=== PATIENT | female | born 1975 | race Caucasian/White ===

== ENCOUNTER 2017-03-16 02:01 | Emergency (ER) | payer OTHER ==
[2017-03-16 03:01] LABS: ABSOLUTE EOSINOPHILS # (AUTO) 0.1 10^3/uL (0.0-0.6); ABSOLUTE LYMPHOCYTES (AUTO) 3.2 10^3/uL (0.5-4.7); ABSOLUTE MONOCYTES (AUTO) 0.5 10^3/uL (0.1-1.4); ABSOLUTE NEUT (AUTO) 4.5 10^3/uL (1.7-8.2); BASOPHILS % (AUTO) 0.3 % (0-2); EOSINOPHILS % (AUTO) 1.3 % (0-6); HEMATOCRIT 37.3 % (36.0-47.0); HGB HCT DIFFERENCE 1.7; LYMPHOCYTES % (AUTO) 37.9 % (13-45); MEAN CORPUSCULAR HEMOGLOBIN 32.1 pg (27.0-33.4); MEAN CORPUSCULAR VOLUME 92 fl (80-97); MONOCYTES % (AUTO) 6.2 % (3-13); RED BLOOD COUNT 4.06 10^6/uL (3.72-5.28); RED CELL DISTRIBUTION WIDTH 12.4 % (11.5-14.0); SEGMENTED NEUTROPHILS % (AUTO) 54.3 % (42-78); WHITE BLOOD COUNT 8.3 10^3/uL (4.0-10.5)
[2017-03-16 03:13] LABS: ALANINE AMINOTRANSFERASE 50 U/L (9-52); ALBUMIN 4.7 g/dL (3.5-5.0); ALCOHOL 141 mg/dL (NONE DETECTED); ALKALINE PHOSPHATASE 52 U/L (38-126); ANION GAP 16 (5-19); ASPARTATE AMINO TRANSFERASE 32 U/L (14-36); BILIRUBIN,DIRECT 0.2 mg/dL (0.0-0.4); BILIRUBIN,TOTAL 0.2 mg/dL (0.2-1.3); BLOOD UREA NITROGEN 14 mg/dL (7-20); CALCIUM 9.5 mg/dL (8.4-10.2); CARBON DIOXIDE 19 mmol/L (22-30); CHLORIDE 110 mmol/L (98-107); GLUCOSE 83 mg/dL (75-110); POTASSIUM 4.2 mmol/L (3.6-5.0); SODIUM 144.6 mmol/L (137-145); TOTAL PROTEIN 7.5 g/dL (6.3-8.2)
--- NOTE | 2017-03-16 03:20 | ER Document Report ---
ED General - General Chief Complaint: Possible Overdose Stated Complaint: POSSIBLE OVERDOSE Time Seen by Provider: 03/16/17 02:28 Notes: Patient is a 41-year-old female presents with complaint of overdose. Patient says that she overdosed on handful of metoprolol pills. She says it is the long -acting metoprolol to take once a day. She is unsure of the dose. She says these are not her medications. She said she did it because "I just wanted to go to sleep". She has no other complaints at this time. She currently denies being suicidal. TRAVEL OUTSIDE OF THE [place] IN LAST 30 DAYS: No Past Medical History - Social History Smoking Status: Current Every Day Smoker Chew tobacco use (# tins/day): No Frequency of alcohol use: Social Drug Abuse: None Family History: Reviewed & Not Pertinent Patient has suicidal ideation: No Patient has homicidal ideation: No Renal/ Medical History: Denies: Hx Peritoneal Dialysis Review of Systems - Review of Systems Notes: My Normal Review Basic REVIEW OF SYSTEMS: CONSTITUTIONAL : Denies fever, chills, or sweats. Denies recent illness. EENT: Denies eye, ear, throat, or mouth pain or symptoms. Denies nasal or sinus congestion. CARDIOVASCULAR: Denies chest pain. RESPIRATORY: Denies cough, cold, or chest congestion. Denies shortness of breath, difficulty breathing, or wheezing. GASTROINTESTINAL: Denies abdominal pain. Denies nausea, vomiting, or diarrhea. Denies constipation. Last BM: MUSCULOSKELETAL: Denies neck or back pain or joint pain or swelling. SKIN: Denies rash or skin lesions. NEUROLOGICAL: Denies altered mental status or loss of consciousness. Denies headache. Denies weakness or paralysis or loss of use of either side. Denies problems with gait or speech. Denies sensory or motor loss. PSYCHIATRIC: Metastases to some depression and anxiety but denies suicidal ideations. ALL OTHER SYSTEMS REVIEWED AND NEGATIVE. Physical Exam - Vital signs Vitals: Temp Pulse Resp BP Pulse Ox 98.3 F 79 14 115/64 99 03/16/17 02:06 03/16/17 02:06 03/16/17 02:06 03/16/17 02:06 03/16/17 02:06 - Notes Notes: General Appearance: Well nourished, alert, cooperative, no acute distress, no obvious discomfort. Well-appearing. Vitals: reviewed, See vital signs table. Head: no swelling or tenderness to the head Eyes: PERRL, EOMI, Conjuctiva clear Mouth: No decreasd moisture Lungs: No wheezing, No rales, No rhonci, No accessory muscle use, good air exchange bilaterally. Heart: Normal rate, Regular rythm, No murmur, no rub Abdomen: Normal BS, soft, No rigidity, No abdominal tenderness, No guarding, no rebound, no abdominal masses, no organomegaly Extremities: strength 5/5 in all extremities, good pulses in all extremities, no swelling or tenderness in the extremities, no edema. Skin: warm, dry, appropriate color, no rash Neuro: speech clear, oriented x 3, normal affect, responds appropriately to questions. Course - Re-evaluation Re-evalutation: 03/16/17 05:40 Patient's vital signs have remained completely normal. I did speak with [employer] control and they said that if she has no symptoms after 12 hours and she can be medically cleared. She took medications around midnight. If she continues to not have bradycardia or hypotension at noon than she will be medically cleared for psychiatric evaluation. Patient tells me that she is once his sleep however she also goes on about her severe depression and anxiety which caused him to be some concerned that there may be some other intent with this overdose other than just trying to sleep. I placed an IVC paperwork so that psychiatry will have an opportunity to evaluate her. Dictation of this chart was performed using voice recognition software; therefore, there may be some unintended grammatical errors. - Vital Signs Vital signs: Temp Pulse Resp BP Pulse Ox 98.3 F 79 15 104/72 99 03/16/17 02:06 03/16/17 02:06 03/16/17 10:30 03/16/17 10:01 03/16/17 10:30 - Laboratory Result Diagrams: 03/16/17 02:32 03/16/17 02:32 Laboratory results interpreted by me: 03/16/17 02:32 Chloride 110 H Carbon Dioxide 19 L Salicylates < 1.0 L Acetaminophen < 10 L - EKG Interpretation by Me Additional EKG results interpreted by me: 03/16/17 03:17 EKG is reviewed and interpreted by me. EKG shows normal sinus rhythm with rate of [address] segment elevation or depression. No ischemic T-wave inversions. [place] interval, QRS duration, QTc intervals are within normal range. No old EKG available for comparison. Discharge - Discharge Clinical Impression: Depressive disorder, Anxiety Condition: Stable Disposition: HOME, SELF-CARE Additional Instructions: DEPRESSION: Your evaluation reveals that you have mental depression. While symptoms may be vague, they often include disturbance of sleep, fatigue, loss of appetite , and general loss of interest in life. While depression may be a side effect of drugs, or a reaction to a major change in your life, many cases have no known cause. If depression is acute, and related to a major loss in your life, you can expect it to clear completely with time. If you have been depressed a long time , are prone to repeated bouts of depression or low mood, or have been thinking of suicide, get help. Depression can be treated with anti-depressant medication and counselling. Long-term depression will often take a few weeks to clear, even with appropriate medication. Follow-up care is important. FOLLOW-UP CARE: Please [place] health needs. Is recommended to take only medications that are prescribed to you as directed. ~ If you experience worsening or a significant change in your symptoms, notify the physician immediately or return to the Emergency Department at any time for re-evaluation.
--- NOTE | 2017-03-16 03:57 | EKG REPORT ---
SEVERITY:- BORDERLINE ECG - SINUS RHYTHM PROBABLE LEFT ATRIAL ABNORMALITY : Confirmed by: Jennifer Martinez MD 16-Mar-2017 03:56:23
--- NOTE | 2017-03-16 10:07 | ER Document Report ---
ED Psych Disorder / Suicide - General Chief Complaint: Possible Overdose Stated Complaint: POSSIBLE OVERDOSE Time Seen by Provider: 03/16/17 02:28 TRAVEL OUTSIDE OF THE [place] IN LAST 30 DAYS: No - HPI Notes: Patient reports intentionally taking a handful of her husbands meds (50mg ER metoprolol) Pt denies SI but reports "I just wanted to go to sleep! IT's been 3 days since I've slept" Pt reports being under a lot of stress recently and unable to sleep. Pt denies AH denies VH denies and deneis HI or SI. Pt has hx of depression and anxiety. Patient disclosed that she just wanted to sleep the took her 's medication. Patient denies ever doing anything like this before. Patient disclosed that she has been up for 3 days because "school and everything... Just have not been able to get to sleep." Patient states she only took that medication because she remembered her saying that it always made him sleepy. Patient denies any mental health outpatient services. Patient does receive Effexor 75 mg from her primary care provider on [facility]. Patient's disclosed he is willing to be part of discharge plan i.e. no access to medications or weapons and follow through with mental health recommendations. Both patient and patient's feels safe with the patient coming home. Patient is seen with the blue team for family care at the [facility]. They disclosed they will be ensuring the patient receives anti- anxiety medications which she was previously on before. Patient recently ran out which is when the the patient started having difficulties. Patient is alert and orientated to person place time and circumstance. Mood is euthymic with congruent affect. Patient denies suicidal homicidal ideation. Patient denies auditory visual hallucinations. Delusions were absent and behaviors congruent with intact reality based presentation i.e. organized, linear, rational thinking. Conversational speech was within normal rate tone and prosody. Eye contact was well-maintained. Intellectual abilities appear to be within the average range. Attention and concentration were good. Insight , judgment, impulse control is fair. 311 (F32.9) unspecified depressive disorder per history provided by patient 300.00 (F34.9) unspecified anxiety disorder per history provided by patient Impression\\plan: Patient is recommended for rescind of IVC and is considered psychiatrically clear for discharge. Patient no longer meets IVC criteria per [place] GS 122C. Patient disclosed she took her 's medications in attempt to go to sleep because she was having difficulties for the last 3 days sleeping. Patient states that she remembered her stating that this medication made him sleepy. Patient adamantly denies that this was a suicide attempt. Patient's agrees to be part of discharge plan to ensure patient does not have access to weapons or medications and follows up with all recommendations for mental health. Patient recently ran out of her antianxiety medications which patient and report is when patient had started having difficulties. Delusions were absent behaviors congruent with intact reality based presentation i.e. organized, linear, rational thinking. Patient is [place]. Patient is also recommended to take prescription medications as prescribed and only take medications that are prescribed to her. Dr. Kennedy was consulted on the care and management of this patient; attending physician is in agreement with recommendations and disposition. Past Medical History - Social History Smoking Status: Current Every Day Smoker Chew tobacco use (# tins/day): No Frequency of alcohol use: Social Drug Abuse: None Family History: Reviewed & Not Pertinent Patient has suicidal ideation: No Patient has homicidal ideation: No Renal/ Medical History: Denies: Hx Peritoneal Dialysis Physical Exam - Vital signs Vitals: Temp Pulse Resp BP Pulse Ox 98.3 F 79 14 115/64 99 03/16/17 02:06 03/16/17 02:06 03/16/17 02:06 03/16/17 02:06 03/16/17 02:06 Course - Vital Signs Vital signs: Temp Pulse Resp BP Pulse Ox 98.3 F 79 16 101/78 98 03/16/17 02:06 03/16/17 02:06 03/16/17 08:30 03/16/17 08:01 03/16/17 08:30 - Laboratory Result Diagrams: 03/16/17 02:32 03/16/17 02:32 Laboratory results interpreted by me: 03/16/17 02:32 Chloride 110 H Carbon Dioxide 19 L Salicylates < 1.0 L Acetaminophen < 10 L Discharge - Discharge Clinical Impression: Depressive disorder, Anxiety Condition: Stable Disposition: HOME, SELF-CARE Additional Instructions: DEPRESSION: Your evaluation reveals that you have mental depression. While symptoms may be vague, they often include disturbance of sleep, fatigue, loss of appetite , and general loss of interest in life. While depression may be a side effect of drugs, or a reaction to a major change in your life, many cases have no known cause. If depression is acute, and related to a major loss in your life, you can expect it to clear completely with time. If you have been depressed a long time , are prone to repeated bouts of depression or low mood, or have been thinking of suicide, get help. Depression can be treated with anti-depressant medication and counselling. Long-term depression will often take a few weeks to clear, even with appropriate medication. Follow-up care is important. FOLLOW-UP CARE: Please [place] health needs. Is recommended to take only medications that are prescribed to you as directed. ~ If you experience worsening or a significant change in your symptoms, notify the physician immediately or return to the Emergency Department at any time for re-evaluation.
--- NOTE | 2017-03-16 10:10 | ER Document Report ---
Doctor's Note Notes: 03/16/17 10:08 Patient resting comfortably on stretcher, is at bedside, she denies being suicidal or making a suicide attempt, stating that she was just trying to go to sleep because she was tired, she does admit to a history of anxiety in the past, apparently stopped taking her medication for approximately a week as they were out of town, confirms that she has follow-up with the blue team over at [place] [facility], states he feels safe to take patient home today as he will be with her all throughout the weekend and will ensure appropriate follow- up, patient also reports that she feels safe to go home today, patient has been seen and evaluated by mental health team who recommended for rescinding IVC and discharging patient home with instructions for follow-up, chart was reviewed including labs, vital signs and history, patient is medically stable for discharge at this point in time Discharge - Discharge Clinical Impression: Depressive disorder, Anxiety Condition: Stable Disposition: HOME, SELF-CARE Additional Instructions: DEPRESSION: Your evaluation reveals that you have mental depression. While symptoms may be vague, they often include disturbance of sleep, fatigue, loss of appetite , and general loss of interest in life. While depression may be a side effect of drugs, or a reaction to a major change in your life, many cases have no known cause. If depression is acute, and related to a major loss in your life, you can expect it to clear completely with time. If you have been depressed a long time , are prone to repeated bouts of depression or low mood, or have been thinking of suicide, get help. Depression can be treated with anti-depressant medication and counselling. Long-term depression will often take a few weeks to clear, even with appropriate medication. Follow-up care is important. FOLLOW-UP CARE: Please [place] health needs. Is recommended to take only medications that are prescribed to you as directed. ~ If you experience worsening or a significant change in your symptoms, notify the physician immediately or return to the Emergency Department at any time for re-evaluation.
[2017-03-16 10:24] LABS: APPEARANCE,URINE CLEAR; BILIRUBIN,URINE NEGATIVE (NEGATIVE); GLUCOSE, URINE NEGATIVE (NEGATIVE); KETONES,URINE NEGATIVE (NEGATIVE); LEUKOCYTE ESTERASE,URINE NEGATIVE (NEGATIVE); NITRITE,URINE NEGATIVE (NEGATIVE); PROTEIN,URINE NEGATIVE (NEGATIVE); UROBILINOGEN,URINE NEGATIVE mg/dL (<2.0)
[2017-03-16 10:33] VITALS: BP 104/72
[2017-03-16 10:36] LABS: URINE BARBITURATES SCREEN UNCONFIRMED POSITIVE; URINE METHADONE SCREEN NEGATIVE; URINE OPIATES LOW NEGATIVE; URINE PHENCYCLIDINE SCREEN NEGATIVE
== END 2017-03-16 11:25 | disposition home or self-care (01) ==
LOC: ER 02:01
DX: F32.9 Major depressive disorder, single episode, unspecified (principal); T44.7X1A Poisoning by beta-adrenoreceptor antagonists, accidental (unintentional), initial encounter; F41.9 Anxiety disorder, unspecified; G47.9 Sleep disorder, unspecified; F17.200 Nicotine dependence, unspecified, uncomplicated
CPT/HCPCS: 36415; 80053; 80307; 81001; 84703; 85025; 93005; 93010; 99284

== ENCOUNTER 2017-12-24 07:45 | Day surgery (SDC) | payer OTHER ==
[2017-12-14 12:04] LABS: HEMOGLOBIN 12.8 g/dL (12.0-15.5); MEAN CORPUSCULAR HEMOGLOBIN 32.4 pg (27.0-33.4); MEAN CORPUSCULAR HGB CONC 34.5 g/dL (32.0-36.0); MEAN CORPUSCULAR VOLUME 94 fl (80-97); PLATELET COUNT 341 10^3/uL (150-450); RED BLOOD COUNT 3.94 10^6/uL (3.72-5.28); RED CELL DISTRIBUTION WIDTH 13.4 % (11.5-14.0); WHITE BLOOD COUNT 4.2 10^3/uL (4.0-10.5)
[2017-12-14 12:20] LABS: ALANINE AMINOTRANSFERASE 40 U/L (9-52); ALBUMIN 4.1 g/dL (3.5-5.0); ALKALINE PHOSPHATASE 66 U/L (38-126); ANION GAP 11 (5-19); ASPARTATE AMINO TRANSFERASE 25 U/L (14-36); BILIRUBIN,DIRECT 0.4 mg/dL (0.0-0.4); BILIRUBIN,TOTAL 0.4 mg/dL (0.2-1.3); BLOOD UREA NITROGEN 8 mg/dL (7-20); CALCIUM 9.9 mg/dL (8.4-10.2); CARBON DIOXIDE 24 mmol/L (22-30); CHLORIDE 106 mmol/L (98-107); GLUCOSE 86 mg/dL (75-110); POTASSIUM 4.7 mmol/L (3.6-5.0); SODIUM 141.2 mmol/L (137-145)
[~2017-12-24 07:45] MED LIST: BUPIVACAINE HCL 0.25 % INJ/PF (2.5 MG/1 ML) 30 ML VIAL ONE; CEFAZOLIN 2 GM/D5W RTU 2 GM/50 ML RTUPB IV SCH; FENTANYL CITRATE INJ/PF 250 MCG/5 ML AMPULE ONE; LACTATED RINGERS 1000 ML IV PRN; LIDOCAINE 0.5% INJ-PF (5 MG/ML) 50 ML SDV SUBCUT PRN; LIDOCAINE 2% INJ-PF (20 MG/ML) 10 ML AMPUL ONE; METHYLENE BLUE 50 MG/10 ML AMPULE ONE; MIDAZOLAM 2 MG/2 ML INJ ONE; ONDANSETRON HCL INJ/PF 4 MG/2 ML SDV ONE; PROPOFOL INJ 200 MG/20 ML VIAL IV ONE
[2017-12-24] MEDS ORDERED: METHYLENE BLUE 50 MG/10 ML AMPULE ONE (10:42)
[2017-12-24] MEDS ORDERED: CLINDAMYCIN 900 MG/D5W RTU 900 MG/50 ML RTUPB IV ONE (11:30)
[2017-12-24] MEDS ORDERED: FENTANYL CITRATE INJ/PF 100 MCG/2 ML AMPUL IV PRN ×3 (12:24)
[2017-12-24] MEDS ORDERED: MEPERIDINE HCL/PF INJ 25 MG/1 ML DISP.SYRIN IV PRN (12:24)
[2017-12-24] MEDS ORDERED: PROMETHAZINE HCL INJ 25 MG/1 ML VIAL IV PRN ×3 (12:24→15:14)
[2017-12-24] MEDS ORDERED: OXYCODONE-ACETAMINOPHEN 5-325 MG TABLET PO PRN ×3 (12:24→15:12)
[2017-12-24] MEDS ORDERED: DIPHENHYDRAMINE HCL 50 MG/ML VIAL IV PRN (12:24)
[2017-12-24] MEDS ORDERED: MORPHINE SULFATE 10 MG/ML INJ IV PRN ×2 (12:24→15:14)
[2017-12-24] MEDS ORDERED: KETOROLAC TROMETHAMINE INJ/PF 30 MG/1 ML SDV ONE (13:20)
[2017-12-24] MEDS ORDERED: ACETAMINOPHEN 1,000 MG/100 ML RTUPB IV ONE (13:20)
[2017-12-24] MEDS: FENTANYL CITRATE INJ/PF 100 MCG/2 ML AMPUL ONE ×2 (13:45→13:50)
--- NOTE | 2017-12-24 14:01 | OPERATIVE REPORT E ---
Operative Report NAME: CANDACE PINEDA : 1975 AGE: 42Y DATE OF SURGERY: 12/24/2017 ROOM: PREOPERATIVE DIAGNOSES: 1. Menometrorrhagia unresponsive to medical therapy. 2. Uterine fibroids. 3. Chronic pelvic pain. POSTOPERATIVE DIAGNOSES: 1. Menometrorrhagia unresponsive to medical therapy. 2. Uterine fibroids. 3. Chronic pelvic pain. OPERATION: 1. Robotic total laparoscopic hysterectomy. 2. Bilateral salpingectomy of the fallopian tube remnants with a history of bilateral tubal ligation in which she had clips. 3. Cystoscopy. SURGEON: Dominique Gonsalez M.D. ANESTHESIA: General. ESTIMATED BLOOD LOSS: 100 mL. INTRAVENOUS FLUIDS: 1700 mL fluids and 200 mL clear urine at the end of procedure. COMPLICATIONS: None. INDICATIONS FOR PROCEDURE: Patient is a 42-year-old, 3, para 3-0-0-3, who has had menometrorrhagia for several years who has attempted multiple medical regimens without resolution of her symptoms. She also has a couple small uterine leiomyomas. Patient is also a chronic pelvic pain patient who is on pain management as well. Patient desires definitive surgical treatment. Counseling of robotic hysterectomy included, but was not limited to, bleeding, infection, injury to surrounding organs or tissue, need of transfusion, possibility of exploratory laparotomy. Patient understood and consented to the procedure and agreed to proceed to the operating room. FINDINGS: 1. Boggy adenomyosis-like uterus. 2. Normal fallopian tubes with 2 small hydrosalpinx on the right and the left side. Patient has had her fallopian tubes clipped previously. 3. Normal ovaries bilaterally and normal cystoscopy findings. PROCEDURE: Patient taken to the operating room. General anesthesia was induced without difficulty. Patient was placed in dorsal lithotomy position, thoroughly prepped and draped in the usual sterile fashion. Crescencio Hugger was placed to maintain control of core body temperature. Finnegan catheter was placed in the bladder. A heavy weighted speculum was inserted in the vaginal mucosa. A single-tooth tenaculum was placed on the anterior lip of the cervix. The cervical os was dilated with Hegar dilators. Hegar dilators were used to dilate the cervix. Two [id number] stitches around 3 and 9 o'clock were placed with anchoring stitches prior to placing the VCare. The VCare manipulator was attached to the uterus with a cervical ring and anchored to the stitches on the right and the left. The weighted speculum was removed from the vaginal mucosa. The single-tooth tenaculum was removed from the anterior lip of the cervix. *------* sutures were placed on the lateral aspect of the cervix to be used as traction later in the case if needed along the VCare as well as they were anchored within it. A vertical infraumbilical incision was performed. The Veress needle was introduced without difficulty. A drop test was performed and was successful. Carbon dioxide was infused until pneumoperitoneum was obtained. The Veress needle was removed. The infraumbilical incision was slightly extended and a 12 mm trocar was inserted. Robotic laparoscope was placed in the abdominal cavity. Please see above findings. After intraperitoneal placement was confirmed, local anesthesia with 0.25% bupivacaine was used at all sites and all ports. Two 8 mm surgery ports were placed inferior to the umbilicus and lateral to the rectus abdominus muscle bilaterally. These ports were in the abdominal cavity under direct visualization and one in the right upper quadrant was inserted as an assistive port. Prior to performing the hysterectomy the ureters on both sides, right and left, were both visualized and both had excellent peristalsis and were well in the visual field at all times. At this point the fimbriated end of the fallopian tube on the right side was grasped, coagulated, and transected all the way through the mesosalpinx to the cornual region. The utero-ovarian ligaments were cauterized and transected. The round ligament was cauterized and transected all the way down to the level of the uterine vessels. The right side of the bladder flap was created without any difficulty and the contralateral was performed in a similar fashion. The fimbriated end was grasped, cauterized, and transected along the mesosalpinx all the way to the cornual region. The round ligament was cauterized and transected. The utero-ovarian ligament was cauterized and transected all the way down to the level of the uterine vessels. The bladder flap on this side was connected to the contralateral side. It was performed initially. The bladder was pushed far away from the cervical ring. At this point an anterior colpotomy was performed, circumscribing the cervix in a circumferential manner, cauterizing and transecting the colpotomy in a circumferential manner. Of course at every point of the procedure the ureters were both in visual blackman and were well away from the surgical field at all times, and they were both a normal peristalsis fashion. Once the ring was identified anteriorly, anterior colpotomy was performed in a circumferential manner. The uterus and the remnants of the fallopian tubes were both removed and the vaginal cuff at this time was irrigated. Small blood vessels from the vaginal cuff were slightly oozing and those were cauterized superficially. Then at this point the vaginal cuff was closed using running V-Loc suture. Attention was turned to the ureters bilaterally again, and they were both identified without any difficulty, peristalsing well away from the vaginal cuff, and they were both with a normal appearance. A survey of the lateral pelvic sidewalls revealed excellent hemostasis. At this point FloSeal was injected along the vaginal cuff for prophylactic measures for hemostasis. At this point attention was turned below to perform the cystoscopy portion. The cystoscope was introduced without any difficulty. Bladder integrity was visualized. There were no foreign bodies or injuries to the bladder. There was excellent efflux from both ureteral orifices with strong efflux of flow identified with methylene blue. The methylene blue was given during the vaginal cuff closure. At this point, once the cystoscopy portion was done, the cystoscope was removed, the robot was undocked, abdomen desufflated, all trocars were removed. The 12 mm infraumbilical incision was repaired with a UR6 to reapproximate the fascia. Remaining incisions were closed with 4-0 Monocryl in a horizontal mattress fashion and then a running fashion and subcuticular fashion for the infraumbilical incision and the right upper quadrant incision. All sponge, lap, and needle counts were correct x2. The patient did receive preoperative IV antibiotics. The Finnegan bag was noted to contain clear urine at the end of the procedure. Again, hemostasis was obtained throughout the whole procedure. The patient tolerated the procedure well and was sent to the recovery room in excellent condition. DICTATING PHYSICIAN: Dominique Gonsalez MD [id number] PHY#: [id number] ID: [id number] JOB#: [id number] ACCT: [id number] cc:Dominique Gonsalez >
[2017-12-24] MEDS ORDERED: MORPHINE SULFATE 10 MG/ML INJ ONE (14:48)
[2017-12-24] MEDS ORDERED: OXYCODONE HCL IR 5 MG TABLET PO PRN (15:13)
[2017-12-24] MEDS ORDERED: ONDANSETRON HCL INJ/PF 4 MG/2 ML SDV IV PRN (15:14)
[2017-12-24] MEDS ORDERED: NORMAL SALINE 1000 ML 1,000 ML IV ONE (15:15)
[2017-12-24 16:40] VITALS: BP 115/70
[2017-12-24] MEDS ORDERED: NEOSTIGMINE METHYLSULFATE 10 MG/10 ML VIAL ONE (19:50)
[2017-12-24] MEDS ORDERED: ROCURONIUM BROMIDE INJ 50 MG/5 ML VIAL IV ONE (19:50)
[2017-12-24] MEDS ORDERED: GLYCOPYRROLATE INJ 0.4 MG/2 ML VIAL ONE (19:50)
== END 2017-12-24 17:45 | disposition home or self-care (01) ==
LOC: OROUT 07:45 → 2N 14:25 → OROUT 17:45
PROVIDERS: ATTEND Obstetrics & Gynecology
DX: D25.9 Leiomyoma of uterus, unspecified (principal); N92.1 Excessive and frequent menstruation with irregular cycle; G89.29 Other chronic pain; R10.2 Pelvic and perineal pain; N72 Inflammatory disease of cervix uteri; N80.0 Endometriosis of uterus; N83.8 Other noninflammatory disorders of ovary, fallopian tube and broad ligament; F17.210 Nicotine dependence, cigarettes, uncomplicated; E07.9 Disorder of thyroid, unspecified; Z88.0 Allergy status to penicillin; Z79.899 Other long term (current) drug therapy
CPT/HCPCS: 58571; S2900; 36415; 80053; 81025; 840; 85027; 86850; 86900; 86901; 88307; J0131; J1885; J2250; J2270; J2405; J2704; J3010; J3490; J7120; Q9968